=== PATIENT | female | born 1950 | race Caucasian/White ===

== ENCOUNTER 2016-11-29 01:20 | Emergency (ER) | payer MEDICARE, OTHER ==
--- NOTE | ~2016-11-29 | ER ---
PATIENT'S NAME: MEGAN MALONEY [facility] AGE: 66 Y [address] ROOM: [place] [address] LOCATION: [facility] ADMIT DATE: 11/29/2016 ER/Outpatient Report DISCHARGE DATE: FAMILY PHYSICIAN: Antonia Blanchard MD ATTENDING PHYSICIAN: Nikos Tian Admission date and time documented on the medical record. I saw the patient at 0130 hours. CHIEF COMPLAINT: Chronic pain. HISTORY OF PRESENT ILLNESS: The patient is a 66-year-old female who comes in with chronic pain problems. She has had a fractured left arm since September 03, 2016. Saw Dr. Zhang today concerning that and sounds like they are going to have to do an operative procedure on that arm in December. Presents tonight with arm pain, but just generalized pain all over which she has not been able to get a hold on. She does have a pain pump. She does take oxycodone 10 mg every 4-6 hours. No recent cough, cold, flu, fever, chills, or sweats. No recent fall or trauma. No lightheadedness, dizziness, syncope, or near syncope. No headache, eyes, ears, nose, throat pain. No shortness of breath. No nausea, vomiting, diarrhea. No urinary symptoms. No joint swelling. No skin eruptions. No history of neuro changes, psych issues, endocrine problems. HOME MEDICATIONS: See attached medication list. ALLERGIES: PENICILLIN, SULFA. SOCIAL HISTORY: Nonsmoker, nondrinker. SIGNIFICANT PAST MEDICAL HISTORY: Chronic pain syndrome, rheumatoid arthritis, fracture of left humerus, intraabdominal adhesions, COPD, hypertension, gastroesophageal reflux. OPERATIONS: Cholecystectomy. REVIEW OF SYSTEMS: All systems reviewed by me are negative with the exception of those discussed in the history of present illness. PATIENT'S NAME: MEGAN MALONEY [facility] AGE: 66 Y [address] ROOM: [place] [address] LOCATION: [facility] ADMIT DATE: 11/29/2016 ER/Outpatient Report DISCHARGE DATE: FAMILY PHYSICIAN: Antonia Blanchard MD ATTENDING PHYSICIAN: Nikos Tian PHYSICAL EXAMINATION: VITAL SIGNS: Temperature 98.1 tympanic, pulse 86, respirations 16, blood pressure 171/86, O2 saturation on room air is 91%. HEAD: Normocephalic. No abrasion, contusions, lacerations, swellings of the scalp or face. EYES: Extraocular muscles intact. PERRL. EARS: Clear TMs bilaterally. NOSE: Clear. THROAT: Clear. Mucous membranes moist. Teeth, jaw intact. NECK: No nuchal rigidity. No findings of adenopathy. No tenderness. SPINE: Negative. LUNGS: Clear. No rales, rhonchi, or wheezes. HEART: Regular. Pulses are palpable. No deformity of the anterior chest wall or ribcage. ABDOMEN: Soft, nondistended, nontender. Good bowel tones. No organomegaly or abnormal mass palpable. No CVA tenderness. PELVIS: Stable. EXTREMITIES: Moves all 4 extremities. Does have some peripheral edema in the lower extremities. No cyanosis. Neurovascularly intact. SKIN: Clear. IMPRESSION: Chronic pain syndrome out of control. PLAN: I did give the patient Demerol 100 mg plus Phenergan 50 mg IM in the emergency room. Dismissed the patient home. Observation. Activity as tolerated. Continue present home medications and care. See personal physician or pain specialist for further help. MD SOHAIL PADILLA/modl /[id number] d: 11/29/16 0356 t: 11/29/16 1813, OUTPATIENT REPORT
== END 2016-11-29 02:09 | disposition disaster alternative care site (69) ==
LOC: GMED 01:20
DX: G89.29 Other chronic pain (principal); M06.9 Rheumatoid arthritis, unspecified; I10 Essential (primary) hypertension; J44.9 Chronic obstructive pulmonary disease, unspecified; K21.9 Gastro-esophageal reflux disease without esophagitis; Z90.49 Acquired absence of other specified parts of digestive tract; Z88.0 Allergy status to penicillin; Z88.2 Allergy status to sulfonamides
CPT/HCPCS: J2175; J2550

== ENCOUNTER 2016-12-04 13:27 | Inpatient (IN) | payer MEDICARE, OTHER ==
[~2016-12-04] VITALS: Ht 154.9 cm; Wt 49.1 kg
--- NOTE | ~2016-12-04 | ECHO ---
Transthoracic Echocardiography Report (TTE) Demographics Patient Name MEGAN MALONEY Date of Study 12/05/2016 Patient Number [id number] Visit Number [id number] Date of 1950 Room Number G3213 Gender Female Number Age 66 year(s) Referring Santo Trevino MD Membership Sales Manager Real Villanueva Physician Leyla Smith MD Physician Interpreting [employer] Teacher Librarian Physician Misty TAYLOR Supervising Ordering Chetan Christensen MD/TRISTEN Physician Nurse Stress Cleaning Manager Conclusions Contractility Score Summary Normal Left Ventricular contractility was noted. Summary The estimated left ventricular ejection fraction is 55-60%. Diastolic assessment reveals Grade I diastolic dysfunction. The left atrium is mildly dilated by LA volume index measurement. Small anterior pericardial effusion. Procedure Type of Study TTE procedure:2D Echocardiogram, M-Mode, Doppler , Color Doppler. Procedure Date Date: 12/05/2016 Start: 01:46 PM Study Location: Inpatient Portable Technical Quality: Good visualization Indications:Pre surgical clearance and Dyspnea/SOB. Appropriate Use Criteria: 9 Patient Status: Routine HR: 75 bpm BP: 158/77 mmHg M-Mode/2D Measurements LV Diastolic Dimension: 3.77 cm LV Systolic Dimension: 2.84 cm LV Septum Diastolic: 0.97 cm LV PW Diastolic: 0.84 cm AO Root Dimension: 2.2 cm Cardiac Output: 4.87 l/min LA Dimension: 2.7 cm EF Estimated: 55 % LVOT: 1.9 cm LVOT VTI: 22.9 cm RV Base: 1.81 cm LV Stroke volume: 64.9 ml RV Length: 5.85 cm TAPSE: 1.91 cm TDI-S': 14.9 cm/s Doppler Measurements AV Peak Velocity: 1.5 m/s MV Peak E-Wave: 0.93 m/s AV Peak Gradient: 9 mmHg MV Peak A-Wave: 1.17 m/s AV Mean Gradient: 5 mmHg MV E/A Ratio: 0.8 LVOT Peak Velocity: 1.11 m/s MV P1/2t: 71 msec MV Deceleration Time: 229 msec TR Gradient:12.11 mmHg PV Peak Velocity: 0.93 m/s Estimated RAP:3 mmHg PV Peak Gradient: 3.46 mmHg Estimated RVSP: 15 mmHg Estimated PASP: 15.11 mmHg E' Septal Velocity: 0.05 m/s A' Septal Velocity: 0.11 m/s E' Lateral Velocity: 0.08 m/s A' Lateral Velocity: 0.12 m/s Findings Left Ventricle The left ventricle is normal in size . Diastolic assessment reveals Grade I diastolic dysfunction. Right Ventricle Normal right ventricle structure and function. Left Atrium The left atrium is mildly dilated by LA volume index measurement. Right Atrium Normal right atrial size. IVC measures 0.93 cm with inspiratory collapse. Mitral Valve Trivial mitral regurgitation by color Doppler. Mild calcification of the mitral valve. Mild mitral annular calcification. Aortic Valve The aortic valve is mildly sclerotic. Tricuspid Valve Trivial tricuspid regurgitation by color Doppler. Pulmonic Valve The pulmonic valve is not well visualized. Pericardial Effusion Small anterior pericardial effusion. Miscellaneous Visualized portions of the aortic root and ascending aorta appear normal in size. Pleural Effusion No evidence of pleural effusion. Contractility Score LV regional wall motion:(0-Non visualized 1-Normal 2-Hypokinesis 3-Akinesis 4-Dyskinesis 5-Aneurysm) Signature dtt: Moraima Altman dtd: 12/05/16 [id number] Physician Self Edit
--- NOTE | ~2016-12-04 | CON ---
PATIENT'S NAME: MEGAN MALONEY [facility] AGE: 66 Y [address] ROOM: [address] [place], [place] [address] LOCATION: [facility] ADMIT DATE: 12/04/2016 Consultation DISCHARGE DATE: FAMILY PHYSICIAN: Antonia Blanchard MD ATTENDING PHYSICIAN: LOLA FORD V DATE OF CONSULTATION: 12/05/2016 IDENTIFYING INFORMATION/REASON FOR CONSULTATION: Jessica is a 66-year-old, , white female, admitted to [facility] on 12/04/2016 as a direct admit from [facility]. Has a longstanding history of chronic pain and opioid dependency. Psychiatric consult was obtained for assistance with the medication regimen. Also matured, she has been quite anxious and disruptive. CHIEF COMPLAINT: "I am feeling okay now." HISTORY OF PRESENT ILLNESS: Megan was doing fairly well, when she was evaluated has been getting the methadone along with the pain pump that she is on. Also on the Ativan at this time along with the clonidine, seem to be in a good spirit and a fairly good historian, and quite forthcoming about her mcbride with medication addiction. States that it all started about a year ago and underwent a few surgeries and got prescribed opioid medications and soon became addicted. She has been seeing Dr. Shelton Alan from office in which she sees Dr. Hunter, and has been placed with Dilaudid intrathecal pain pump, on top of it has been getting oxycodone and hydrocodone prescribed to her through Dr. Antonia Blanchard. It is quite open that she will take "as many as I can get." States that there would be days when she will get 6 to 8 of them. Many times she says she got prescribed of a 90-day supply and during those days, she will take a significant amount and then ran out of them going into withdrawal and anxiety. States that now it is to a point where she herself is ready to get treatment, but does not know how to do it. States that she gets very anxious which is a very common trigger, and also not able to sleep at nighttime is another big trigger for her where she seeks and goes after the pain medications to seek tiredness and sedation. No prior psychiatric history that she shared. As her was there as well corroborated, overall calm, cooperative, and wants help. PSYCHIATRIC HISTORY: None. MEDICAL HISTORY: PATIENT'S NAME: MEGAN MALONEY [facility] AGE: 66 Y [address] ROOM: [address] [place], [place] [address] LOCATION: [facility] ADMIT DATE: 12/04/2016 Consultation DISCHARGE DATE: FAMILY PHYSICIAN: Antonia Blanchard MD ATTENDING PHYSICIAN: LOLA FORD V 1. Fractured her humerus in August. 2. Also hypertension. 3. Osteoarthritis. 4. Rheumatoid arthritis. 5. Fibromyalgia. CURRENT MEDICATIONS: She is taking BuSpar, has been started on methadone gradual taper. Also an order in for extra oxycodone and also on p.r.n. Ativan. PERSONAL AND SOCIAL HISTORY: , lives in [place]. Denies any other illegal substances or alcohol dependence. MENTAL STATUS EXAMINATION: Appeared the stated age, calm, cooperative, getting echo, and calm and relaxed and a good historian, and quite forthcoming about her pain medication use and herself wants some help in that area. "I am sick of it." Calm, cooperative. No elements of any psychosis. No manic symptomatology. Just talked about her triggers and always feeling anxious and nervous. Otherwise, alert and oriented. General fund of knowledge is good. Judgment and insight are fair. DIAGNOSES: 1. Anxiety disorder, other specified. 2. Opioid dependence. 3. Fracture of humerus. ASSESSMENT AND PLAN: A long history of significant opioid abuse. It will be difficult to manage it unidimensionally. At this time has been initiated on a long-term opioid and is on a methadone taper which is very appropriate, to complicate things likely to have a surgical manipulation to adjust the humerus so there would be a real focus for pain and might need stronger medications over the next several days. The overall treatment should be involving the outpatient providers and keeping them informed that she is on a pain pump and so she can limit what she can access in terms of her prescriptions. Would definitely let Dr. Antonia Blanchard upon discharge know along with the pain specialist about the concerns that the patient has shared with us. For now, we will add Seroquel 50 mg at bedtime and another 12.5 mg b.i.d. to alleviate the anxiety and to help rather insomnia which per her is a big trigger for taking more pain medications. No behavior problems. No acute safety concerns. Please call with any specific concerns. Discussed with the patient about different strategies in the presence of the including dispensing the medication in small installments, using weekly medication totes so she does not at one time have access to a large amount of pills, if they end up of being used in the short PATIENT'S NAME: MEGAN MALONEY [facility] AGE: 66 Y [address] ROOM: [place] [address] LOCATION: [facility] ADMIT DATE: 12/04/2016 Consultation DISCHARGE DATE: FAMILY PHYSICIAN: Antonia Blanchard MD ATTENDING PHYSICIAN: LOLA FORD V term. YAKOVVIR MD ALBERT EGAN/modl /[id number] d: 12/05/162037 t: 12/09/161831, CONSULTATION REPORT
--- NOTE | ~2016-12-04 | HP ---
PATIENT'S NAME: MEGAN MALONEY [facility] AGE: 66 Y [address] ROOM: [place] [address] [place] [facility] [place] DATE: 12/04/2016 History & Physical DISCHARGE DATE: FAMILY PHYSICIAN: Antonia Blanchard MD ATTENDING PHYSICIAN: LOLA FORD V DATE OF SERVICE: ORTHOPEDIC CONSULTATION CHIEF COMPLAINT/REASON FOR CONSULTATION: Nonunion left humerus fracture. HISTORY OF PRESENT ILLNESS: This 66-year-old female fell and fractured her left humerus, mid shaft fracture in mid August 2016. She was treated with a coaptation splint and sling. She is still complaining of pain at the left humerus. She denies numbness or tingling in the hand. She has been on narcotics for the pain and has been prescribed Dilaudid for 5 or 6 years for other problems by her family physician. She felt that she was addicted to drugs and checked in to [facility] for treatment. She still has pain in her left humerus and she can feel with moving. PAST MEDICAL HISTORY: 1. Hypertension. 2. Chronic diarrhea. 3. Osteoarthritis. 4. GERD. 5. COPD. 6. Rheumatoid arthritis. 7. Fibromyalgia. 8. Carotid artery stenosis. 9. History of anxiety. PAST SURGICAL HISTORY: 1. Cholecystectomy. 2. Adhesions. SOCIAL HISTORY: Distant smoker. No active alcohol or smoking. FAMILY HISTORY: Hypertension. CURRENT MEDICATIONS: PATIENT'S NAME: MEGAN MALONEY [facility] AGE: 66 Y [address] ROOM: [place] [address] [place] [facility] [place] DATE: 12/04/2016 History & Physical DISCHARGE DATE: FAMILY PHYSICIAN: Antonia Blanchard MD ATTENDING PHYSICIAN: LOLA FORD V 1. Clonidine. 2. Lorazepam. 3. Metoprolol. 4. Mirtazapine. 5. Zanaflex. 6. Acetaminophen. 7. Imodium. 8. Losartan. 9. Pantoprazole. 10. Magnesium. 11. Plaquenil. 12. Potassium. 13. Prednisone. 14. Omnicef. 15. BuSpar. 16. Oxycodone. REVIEW OF SYSTEMS: No coughs, colds, fevers, chills, or sore throats. No chest pain or shortness of breath. No dysuria or hematuria. She does have some diarrhea. No blackout spells, dizziness, no malaise or weight change. No auditory or visual hallucinations. PHYSICAL EXAMINATION: GENERAL: She is awake, alert, and oriented x3. Mood and affect appropriate. VITAL SIGNS: Temperature is 98.0, pulse is 74 and regular, respirations 16, and blood pressure 132/84. HEENT: Atraumatic and normocephalic. PERRL. EOMI. TMs clear. Throat clear. NECK: Supple. CHEST: Clear to auscultation. HEART: Regular rhythm. ABDOMEN: Soft, nontender. Normoactive bowel sounds. EXTREMITIES: She has good pulses bilaterally. NEUROLOGIC: Sensation and motor function are intact in the upper and lower extremities. Pulses good. Reflexes equal. Left arm, she has tenderness but no swelling at the humerus. There is palpable movement at the fracture site with pain. DIAGNOSTIC DATA: X-rays of her left humerus, AP and lateral demonstrate a long oblique mid shaft fracture with angulation and no healing. IMPRESSION: 1. Nonunion left femur. PATIENT'S NAME: MEGAN MALONEY [facility] AGE: 66 Y [address] ROOM: [place] [address] [place] [facility] DATE: 12/04/2016 History & Physical DISCHARGE DATE: FAMILY PHYSICIAN: Antonia Blanchard MD ATTENDING PHYSICIAN: LOLA FORD V 2. Opioid dependency. 3. Hypertension. 4. Anxiety. 5. Rheumatoid arthritis, on Plaquenil and prednisone. 6. Depression, on BuSpar. PLAN: For now, conservative treatment. She is scheduled for ORIF and bone grafting of the left humerus in a couple weeks. We might be able to do that sooner if her medical condition permits. We will discuss it with Internal Medicine. MD TARIQ CALHOUN/elke /[id number] D: 543 T: 114 HISTORY & PHYSICAL
--- NOTE | ~2016-12-04 | DS ---
PATIENT'S NAME: MEGAN MALONEY [facility] AGE: 66 Y [address] ROOM: [address] [place], [place] [address] LOCATION: [facility] ADMIT DATE: 12/06/2016 Discharge Summary DISCHARGE DATE: 12/06/2016 FAMILY PHYSICIAN: Antonia Blanchard MD ATTENDING PHYSICIAN: Ugo Mayer V PRIMARY DIAGNOSES: 1. Opiate dependence. 2. Anxiety. 3. Chronic condition includes chronic diarrhea, left humeral fracture, chronic pain, and also rheumatoid arthritis. PRINCIPAL PROCEDURES DONE: None was indicated in the patient. LABORATORY DATA: No new labs were done during the hospital stay. HOSPITAL COURSE: Please check the H and P, which was done by Dr. Mayer for details. The patient was admitted to Med Surgical Unit and she was chemically weaned off her opiate dependence with methadone combined with oxycodone Immediate Release and she did also have severe anxiety problem for which Psychiatry was called and Psychiatry started the patient on Seroquel. On the day of discharge, which is the next day of the hospital stay, the patient did remark that the Seroquel did help with her anxiety. On the first day of the hospital stay, she was also followed up by the Orthopedic Team as they were seeing the patient on the outside for her humeral fracture, left, and they had initially set the patient up for plate placement for the fracture on December 25; however, since she was on admission, they thought of possibly trying to get it done; however, this was later canceled and went back to the old plan of getting it done on December 25. On the day of discharge, the patient did not feel happy to the fact that her surgery for the left humeral fracture had to be canceled and referred back to the initial plan and she got a little bit agitated for this. However, medically, she was stable, vital signs were stable, and she was discharged home. MEDICATIONS ON DISCHARGE: Includes: 1. BuSpar 10 mg p.o. 3 times daily. 2. Cholestyramine 4 g p.o. daily new medication. 3. Clonidine 0.1 mg transdermal every 7 days. 4. Plaquenil 200 mg p.o. daily. 5. Cozaar 100 mg p.o. daily. 6. Magnesium oxide 400 mg p.o. twice daily. 7. Methadone 10 mg p.o. twice daily to stop on December 06, 2016. The patient needs just one more tablet. 8. Metoprolol 100 mg p.o. daily. 9. Remeron 30 mg p.o. daily. PATIENT'S NAME: MEGAN MALONEY [facility] AGE: 66 Y [address] ROOM: [place] [address] LOCATION: [facility] [place] ADMIT DATE: 12/06/2016 Discharge Summary DISCHARGE DATE: 12/06/2016 FAMILY PHYSICIAN: Antonia Blanchard MD ATTENDING PHYSICIAN: Ugo Mayer V 10. Oxycodone 10 mg p.o. q.6 h. for 2 days then oxycodone 10 mg p.o. q.8 h. for one day then stop. 11. Protonix 40 mg p.o. daily. 12. Potassium chloride 20 mg p.o. twice daily. 13. Prednisone 10 mg p.o. daily. 14. Vitamin D synthetic 50,000 units every 7 days. 15. Seroquel 50 mg p.o. q.h.s. 16. Seroquel 12.5 mg p.o. twice daily. DARLENE LOPEZ MD ODO/modl /[id number] d: 12/06/16 235 t: 12/18/16 1724, DISCHARGE SUMMARY
--- NOTE | ~2016-12-04 | HP ---
PATIENT'S NAME: MEGAN MALONEY [facility] AGE: 66 Y [address] ROOM: [id number] [place], [place] [address] LOCATION: [facility] ADMIT DATE: 12/04/2016 History & Physical DISCHARGE DATE: FAMILY PHYSICIAN: Antonia Blanchard MD ATTENDING PHYSICIAN: LOLA FORD V DATE OF SERVICE: CHIEF COMPLAINT: Pain. HISTORY OF PRESENT ILLNESS: This is a 66-year-old female who is being sent direct admit from clinic in [place]. She has a past medical history most significant for long-standing chronic pain with opioid dependency. She comes in with a packet of approximately 60 pages long characterizing her recent course. The patient has been on Dilaudid, perhaps for 5-6 years. It is reported that her pain is related to history of cholecystectomy and subsequent adhesions. Of note, the patient did have a recent left humerus fracture and was diagnosed with rheumatoid arthritis, although I doubt rheumatoid arthritis plays into her current medical condition. Essentially, she has had increasing requirements of opioids in the last 6 weeks. In fact, she was taking so much Percocet that she had an LFT elevation several weeks ago and was changed to just oxycodone and hydrocodone. She has been coming into the ER 2-3 times a week, sometimes even twice a day receiving shots of Demerol as well as Toradol. Of note, the patient was admitted to [facility] for 5 days, last discharge yesterday. There, she has undergone a lidocaine drip as well as what sounds like a celiac plexus block as well as an endoscopy which was unremarkable. All of these interventions did not control her need for additional opioid and she came to see her PMD in [place] today. It was discussed with her that the patient probably has significant opioid dependency and would require inpatient rehab but at this point, will have to be detoxified from the opioids. She was sent to [facility] as a direct admission. I am seeing the patient in the room here and she complains of mild anxiety as well as generalized pain throughout her whole body. It does localize somewhat to her left humerus where she had the fracture, but overall it is fairly uniform throughout her body. She denies any cardiac chest pain, dizziness, or syncope. She does endorse diarrhea which has been a chronic problem for her for many years. PATIENT'S NAME: MEGAN MALONEY [facility] AGE: 66 Y [address] ROOM: [place] [address] LOCATION: [facility] ADMIT DATE: 12/04/2016 History & Physical DISCHARGE DATE: FAMILY PHYSICIAN: Antonia Blanchard MD ATTENDING PHYSICIAN: LOLA FORD V REVIEW OF SYSTEMS: All systems have been reviewed and are negative aside from pertinent positives mentioned above. PAST MEDICAL HISTORY: In addition to chronic pain is significant for hypertension, history of adhesions, chronic diarrhea, chronic osteoarthritis, GERD, documented COPD, rheumatoid arthritis, fibromyalgia, and carotid artery stenosis. SURGICAL HISTORY: Significant for a history of cholecystectomy. SOCIAL HISTORY: The patient was a distant smoker, but has no active toxic habits. FAMILY HISTORY: Reviewed and is noncontributory. CURRENT MEDICATIONS: 1. Clonidine transdermal patch. 2. Lorazepam 0.5. 3. Metoprolol ER 100. 4. Mirtazapine 30 mg. 5. Zanaflex 4. 6. Acetaminophen as needed. 7. Vitamin D2. 8. Imodium 2 mg. 9. Losartan 50. 10. Pantoprazole 40. 11. Magnesium oxide 400. 12. Plaquenil 200. 13. Potassium chloride. 14. Prednisone 5. 15. Omnicef 300. 16. BuSpar 10. 17. Oxycodone/APAP 10/325 one tablet every 4 hours, not to exceed 6 tablets a day. PHYSICAL EXAMINATION: VITAL SIGNS: Temperature is 98.2, pulse is 100, respirations 18, blood pressure 123/62, and saturating 95% on room air. GENERAL: Appears as a chronically ill, elderly female, in mild distress, but nontoxic. NEUROLOGICAL: Exam is nonfocal. EYES: Exam shows pupils are equal and reactive to light. PATIENT'S NAME: MEGAN MALONEY [facility] AGE: 66 Y [address] ROOM: [place] [address] LOCATION: [facility] ADMIT DATE: 12/04/2016 History & Physical DISCHARGE DATE: FAMILY PHYSICIAN: Antonia Blanchard MD ATTENDING PHYSICIAN: LOLA FORD V LYMPHATIC: Exam shows no cervical lymphadenopathy. ENDOCRINE: Exam shows no thyromegaly. LUNGS: Clear to auscultation. HEART: Rate is regular with no appreciable murmurs, gallops, or rubs. GI: Abdomen is soft, nontender, and nondistended. : Exam reveals no costovertebral angle tenderness. VASCULAR: 2+ pedal pulses. MUSCULOSKELETAL: Exam is deferred. PSYCHIATRIC: Exam reveals appropriate mood, cognition, and affect with considerable anxiety. SKIN: Warm and dry. DIAGNOSTIC DATA: No studies are available at this point. ASSESSMENT AND PLAN: This is a 66-year-old female who was admitted with, 1. Opioid dependence. I had a very horace discussion with the patient and her explaining to her that her "pain" is a manifestation of her chemical dependency to opioids. I explained to her that the reason that she is here is so that we can detoxify her to the best of our ability, which I expect will be limited, as she is on a Dilaudid intrathecal pump. Nevertheless, I told her that at this point, we will not be providing her with any more IV medicines including Demerol. I told her that given her declining recent course, it is worthwhile to attempt a brief course of methadone with a concurrent tapering of her oral opioid regimen. I explained to her that this will not be a pleasant process and her cooperation and acceptance of some discomfort is essential to succeeding. The patient and her endorsed understanding. We will also consider a Pain Management consult if we are not successful with the above plan. 2. Given her recent diagnosis of rheumatoid arthritis and other medical problems, we will check her labs as well as ESR to make sure that this is not a possibly polymyalgia rheumatica or other exacerbating condition. 3. Hypertension. Her blood pressure is well controlled. 4. Chronic diarrhea. I was informed that cholestyramine is an agent that works well for her, and we will put her on that p.r.n. Additional management will depend on clinical course. Time dedicated to the patient's encounter is 35 minutes. LOLA FORD MD PATIENT'S NAME: MEGAN MALONEY [facility] AGE: 66 Y [address] ROOM: [place] [address] LOCATION: [facility] ADMIT DATE: 12/04/2016 History & Physical DISCHARGE DATE: FAMILY PHYSICIAN: Antonia Blanchard MD ATTENDING PHYSICIAN: LOLA FORD/veronical /[id number] D: [id number] T: [id number] HISTORY & PHYSICAL
[2016-12-04] MEDS ORDERED: PLAQUENIL200 MG PO (15:01)
[2016-12-04] MEDS ORDERED: OMNICEF 300MG300 MG PO (15:02)
[2016-12-04] MEDS ORDERED: PROTONIX40 MG PO (15:03)
[2016-12-04] MEDS ORDERED: K-TAB ER20 MEQ PO (15:03)
[2016-12-04] MEDS ORDERED: COZAAR100 MG PO (15:03)
[2016-12-04] MEDS ORDERED: ZANAFLEX4 MG PO (15:04)
[2016-12-04] MEDS ORDERED: DELTASONE10 MG PO (15:04)
[2016-12-04] MEDS ORDERED: MAG-OX-400(241400 MG PO (15:05)
[2016-12-04] MEDS ORDERED: IMODIUM2 MG PO (15:06)
[2016-12-04] MEDS ORDERED: TYLENOL325 MG PO (15:06)
[2016-12-04] MEDS ORDERED: REMERON 30 MG30 MG PO (15:06)
[2016-12-04] MEDS ORDERED: OXYCODONE HCL10 MG PO (15:08)
[2016-12-04] MEDS ORDERED: ATIVAN 0.5MG0.5 MG PO (15:08)
[2016-12-04] MEDS ORDERED: DRISDOL 5050000 UNIT PO (15:08)
[2016-12-04] MEDS ORDERED: PERCOCET 10-321 EACH PO (15:10)
[2016-12-04] MEDS ORDERED: NORCO 5-325 TA1 EACH PO (15:10)
[2016-12-04] MEDS ORDERED: BUSPAR10 MG PO (15:11)
[2016-12-04] MEDS ORDERED: CATAPRES-TTS0.1 MG TRANS (15:12)
[2016-12-04] MEDS ORDERED: TOPROL XL 5050 MG PO (15:13)
--- NOTE | 2016-12-04 15:54 | NUR ---
Patient is 66 yo femaled admitted via private vehicle from [facility]. Patient lives w/ in [place]. She apparently fell in Aug 2016 and fractured her left humerus. she has been being treated by Dr. Ramesh, she is scheduled to have her left humerus stabilized by ORIF 12/25/16. She states she probably won't be able to have the surgery. She apparently has become dependent upon the opiods and is having difficulty. She states she can be "very difficult" sometimes. Patient was at [facility] for 5 days, went home yesterday. She states they didn't do anything to help her dependence. When she got home, she was very anxious and unable to function. went to [facility] to see her provider, and she is transferred here. she has a saline lock noted in right inner wrist without erythema or edema noted at site. patient appears to be very anxious, but is able to calm herself down at times as well. Education is given as documented. patient denies questions. foot pumps are on bilat. fall and allergy bracelets on. call light is within reach. patient denies other needs at this time. menu and how to order meals is reviewed w/patient also. Report is given to SHIVANI Alba.
--- NOTE | 2016-12-04 19:30 | NUR ---
Significant Event: Patient is alert and oriented x3. VSS and on RA. Methadone and oxycodone started, patient states she does not have relief at this time. Pain is in the right upper quadrant. Up with 1PA and jarod-walker. Alarms on. Pressure ulcer on buttocks- wound nurse notified and she evaluated. Cooperative with cares.
[2016-12-04 21:15] LABS: BASOPHIL % 0.4 %; EOSINOPHIL # 0.1 K/uL (0.0-0.5); EOSINOPHIL % 1.1 %; HEMATOCRIT 37.9 % (33.0-46.0); HEMOGLOBIN 11.6 g/dL (10.0-15.0); IMMATURE GRANULOCYTE % 0.4 %; LYMPHOCYTE # 1.8 K/uL (0.8-4.0); LYMPHOCYTE % 16.5 %; MCH 30.3 pg (27.0-34.0); MCHC 30.6 gm/dL (32.0-36.5); MONOCYTE # 0.6 K/uL (0.0-1.0); MONOCYTE % 5.6 %; MPV 10.8 fl (9.4-12.4); NEUTROPHIL # (ANC) 8.2 K/uL (1.8-7.8); NRBC % 0 /100WBC (0-0.00); PLATELET COUNT 309 K/uL (150-450); RBC 3.83 M/uL (3.50-5.50); RDW-CV 16.6 % (11.9-14.6); WBC 10.8 K/uL (4.0-11.0)
[2016-12-04 21:39] LABS: ALK PHOS 78 IU/L (33-138); ALT 21 IU/L (12-78); ANION GAP 10.7 (10.0-19.0); AST 41 IU/L (10-40); BLOOD UREA NITROGEN 5 mg/dL (6-24); CALCIUM 8.7 mg/dL (8.5-10.5); CHLORIDE 107 mMol/L (96-110); CO2 30 mMol/L (22-32); CREATININE 0.8 mg/dL (0.5-1.1); ESTIMATED GFR (MDRD EQUATION) > 60; MAGNESIUM 1.8 mg/dL (1.3-2.6); PHOSPHORUS 3.6 mg/dL (2.5-4.9); POTASSIUM 3.7 mMol/L (3.7-5.1); SODIUM 144 mMol/L (135-145); TOTAL BILIRUBIN 0.3 mg/dL (0.0-1.5); TOTAL PROTEIN 6.5 g/dL (6.0-8.4)
--- NOTE | 2016-12-05 03:41 | NUR ---
Significant Event: Pt is alert and oriented. VSS on RA. IV to the R)wrist. L)arm in sling due to recent fracture. Pt was very anxious during shift, PRN ativan ordered. Bed alarm on at all times. Ambulates 1 assist/jarod walker. Tolerating regular diet. No complaints of nausea. Follow Up: Continue to monitor.
--- NOTE | 2016-12-05 14:16 | NUR ---
Met with patient, , sister, and son at bedside today. Introduced myself and explained the role of the CM department. Patient was in the state of extreme anxiety. She was really struggling with managing her emotions. I asked the family to leave so I had some time to talk to patient alone. She states she has suffered anxiety for over a year now and has hid it from her son and sister, but her has known about it. We also discussed her dependency on the opiod pain relievers. Patient admits that she has over used these for a number of years and part of that is because they also helped control her anxiety. Patient was very tearful while we talked. She states she just wants to be able to have a normal life being a , mother, grandma, and sister. She is very afraid that her son will not let his daughter, Rain see her knowing how bad her anxiety is. She is very worried about her as he has been trying to help her on his own the past year and he is getting worn out and he no longer knows what to do for her. I talked to her about treatment options for the addiction and for her anxiety. She states that she is willing to consider either inpatient or intensive out patient treatment. I also shared with her that some of the symptoms she is having could be due to withdrawal from not having the pain medications. I am not certain she completely understands this. She states that she and her are considering moving to [place]. Charge Nurse Sherly state they have questions on some assisted living facilities. I will meet with them again today or tomorrow.
--- NOTE | 2016-12-05 15:12 | NUR ---
Significant Event: Pt c/o intermittent left arm pain, controlled with routine oxcodone, continues on methadone and has a pain pump in place. Anxious at times, Ativan PO given at 1230. Psychiatric consult, chest xray, Echo, Dr. Ramesh consult, xray ap/latereral left arm, OT/PT consult. Possible surgery in near future. Left arm in sling, good csm. Does have a sore on coccyx. Need UA. Follow up:
[2016-12-05 21:49] LABS: BILIRUBIN URINE NEGATIVE (NEGATIVE); BLOOD URINE NEGATIVE /UL (NEGATIVE); COLOR URINE YELLOW (YELLOW); GLUCOSE URINE NEGATIVE (NEGATIVE); KETONE URINE NEGATIVE (NEGATIVE); LEUKOCYTES URINE 25 /UL (NEGATIVE); NITRITE URINE NEGATIVE (NEGATIVE); PROTEIN URINE NEGATIVE (NEGATIVE); SPEC GRAVITY URINE 1.015 (1.003-1.035); TURBIDITY URINE CLEAR (CLEAR); UROBILINOGEN URINE NORMAL (NORMAL)
[2016-12-05 22:11] LABS: BACTERIA URINE RARE (NEGATIVE); EPITHELIAL URINE 0-2 #/HPF (NEGATIVE); MUCUS URINE 4+ (NEGATIVE)
[2016-12-05 22:12] LABS: HYALINE CAST URINE 0-2 #/LPF (NEGATIVE); WBC CLUMPS URINE RARE (NEGATIVE)
--- NOTE | 2016-12-06 03:52 | NUR ---
Significant Event: Pt is alert and oriented. VSS on RA. Pt is a lot more calm and has not seemed anxious this shift. Been Sleeping most of shift. Ambulates 1 assist/gaitbelt/jarod walker. No complaints of nausea or pain. Follow Up: Continue to monitor. Surgery in future.
--- NOTE | 2016-12-06 12:17 | NUR ---
Met with patient and today. Patient is reporting feeling very anxious again today. She does state that she felt better yesterday afternoon. She is not sure if they are going to plan to do surgery on her arm while she is here in the hospital or not. Will talk with SANTOS Calvillo following patient and let her know the patient has a lot of anxiety today. Per Allison, patient should be able to discharge to home with out patient therapy for her addiction and anxiety. Will follow patient and offer supports as needed.
--- NOTE | 2016-12-06 16:01 | NUR ---
Significant Event: Pt states pain tolerable with routine pain medications. Up with standby assist. Occasional anxiety, Ativan given at 1130. Pt to dc to home. Pt/ have a lot of anxiety about discharging. Care management talked with them and if they chose assisted living or senior living placement it would be out of pocket costs and she does not qualify for need of placement. Gave Seroquel at 1400 per MD order. Care management did discuss options of outpatient addiction facilities and gave them information on one in [place] if they choose so in the future. Possible dc later today. Sling to left arm, good CSM to arm. Follow up:
[2016-12-06] MEDS ORDERED: PREVALITE PACKET4 GM PO (16:53)
[2016-12-06] MEDS ORDERED: DOLOPHINE10 MG PO (16:57)
[2016-12-06] MEDS ORDERED: SEROQUEL50 MG PO (17:11)
[2016-12-06] MEDS ORDERED: SEROQUEL100 MG PO (17:12)
--- NOTE | 2016-12-06 17:40 | NUR ---
D:Orders received for patient to be dismissed. I:Dismissal instructions were prepared and reviewed with the patient and her spouse by the virtual nurse using the computer technology. The following information was reviewed: diet and activity recommendations for home, plans for methadone x 1 more dose tonight and to continue oxycodone taper, home medications/new prescription medications, and plans for follow up appointment with Dr. Blanchard on Friday in [place]. Corry teaching given to patient and reviewed on the following topics: Preventing DVT's, Prevalite, Methadone and Seroquel. The patient was instructed to keep with her plan for surgery with Dr. Ramesh as previously scheduled on 12/25/16. R:The patient and her spouse verbalized understanding of above teaching and denied further questions at this point in time. Patient's spouse states he is planning on admitting pt to the [facility] so he can have the nurses monitor her. He said he has it all arranged and they are waiting for her as we speak. Primary nurse was notified of this statement by her pt's and she said the charge nurse and hospitalist are aware of this. P:The patient's primary nurse, Margarita RODARTE, was notified of that the dismissal paperwork had been completed. She was going to take the paperwork in for the patient to sign and have. The patient will be dismissed this evening. Herman PARRISH
--- NOTE | 2016-12-06 19:01 | NUR ---
Pt dc'd to home at 1745. Pt belongings sent with them. Discharged with .
== END 2016-12-06 18:00 | disposition disaster alternative care site (69) | DRG 897 ==
LOC: GMSU 13:27
PROVIDERS: Hospitalist; ADMIT Internal Medicine
PROC: HZ96ZZZ Pharmacotherapy for Substance Abuse Treatment, Clonidine (ICD-10-PCS; principal; 2016-12-06)
PROC: HZ91ZZZ Pharmacotherapy for Substance Abuse Treatment, Methadone Maintenance (ICD-10-PCS; principal; 2016-12-06)
DX: F11.288 Opioid dependence with other opioid-induced disorder (principal); S42.332A Displaced oblique fracture of shaft of humerus, left arm, initial encounter for closed fracture; J44.9 Chronic obstructive pulmonary disease, unspecified; I10 Essential (primary) hypertension; M06.9 Rheumatoid arthritis, unspecified; F32.9 Major depressive disorder, single episode, unspecified; M79.7 Fibromyalgia; K52.9 Noninfective gastroenteritis and colitis, unspecified; M19.90 Unspecified osteoarthritis, unspecified site; G89.29 Other chronic pain; T40.2X5A Adverse effect of other opioids, initial encounter; W19.XXXA Unspecified fall, initial encounter; Z71.51 Drug abuse counseling and surveillance of drug abuser; Z98.890 Other specified postprocedural states; Z90.49 Acquired absence of other specified parts of digestive tract; Z87.891 Personal history of nicotine dependence
CPT/HCPCS: G0378; G0379; J7512

== ENCOUNTER 2016-12-20 14:00 | Inpatient (IN) | payer MEDICARE, OTHER ==
[~2016-12-20] VITALS: Ht 154.9 cm; Wt 50.6 kg
--- NOTE | ~2016-12-20 | OR ---
PATIENT'S NAME: MEGAN MALONEY [facility] AGE: 66 Y [address] ROOM: [address] [address] LOCATION: [facility] ADMIT DATE: 12/25/2016 OR/Procedure Report DISCHARGE DATE: FAMILY PHYSICIAN: Antonia Blanchard MD ATTENDING PHYSICIAN: Petey Zhang SURGEON: Petey Zhang MD SMOKE TESTER: SANTOS Saravia DATE OF PROCEDURE: 12/25/2016 PREOPERATIVE DIAGNOSIS: Delayed union, left humeral shaft fracture. POSTOPERATIVE DIAGNOSIS: Delayed union, left humeral shaft fracture. OPERATION PERFORMED: Open reduction and internal fixation with bone graft from the left iliac crest. ANESTHESIA: General, ET tube. INDICATIONS: This is a 66-year-old female with a left humerus fracture after a ground-level fall about 4 months ago. She has been treated nonoperatively, but her fracture shows no evidence of healing and has been quite painful for her. She does have a problem with opioid dependence and anxiety. She also has rheumatoid arthritis and chronic pain diagnosis. DESCRIPTION OF PROCEDURE: The patient was brought to the operating room, and when a satisfactory general anesthesia had been established, her left upper extremity and shoulder were prepped and draped in an aseptic manner. Her left iliac crest was also prepped and draped in an aseptic manner. A long anterolateral incision was made over the left arm and carried down through the subcutaneous fat. The biceps muscle was identified, and it was retracted. The brachialis muscle was divided to get down to the bone after the radial nerve had been visualized and exposed. The incision was extended proximally, and the proximal fragment found and exposed, having to take some of the deltoid off the humerus. An attempt was made to use an osteotome and flake bone off with soft tissue attached. There was a pseudoarthrosis at the delayed union. Once the two ends had been exposed, intramedullary canals opened, and the bones cleaned off, they were reduced and held with 2 Allen clamps. The long oblique fracture was able to be fixed with three 3.5 lag screws. This provided fairly decent fixation. A 7-hole 4.5 LC-DC plate was then contoured to fit the humerus. It was then placed, and locking screws placed proximally and distally. An incision was then made over the iliac crest anteriorly and carried down through the subcutaneous fat. Bone graft was obtained from the inner table, harvesting bone strips of cortical cancellous bone and also cancellous bone. This was taken to the fracture and carefully laid along the fracture and as far around all sides of the bone as PATIENT'S NAME: MEGAN MALONEY [facility] AGE: 66 Y [address] ROOM: [place] [address] LOCATION: [facility] ADMIT DATE: 12/25/2016 OR/Procedure Report DISCHARGE DATE: FAMILY PHYSICIAN: Antonia Blanchard MD ATTENDING PHYSICIAN: Petey Zhang could be gotten. The deltoid was then closed over the bone graft with interrupted 0 Vicryl. The brachialis was also closed over the bone graft with interrupted 0 Vicryl. The pelvis incision was closed by SANTOS Simmons, with interrupted 0 Vicryl for the deep fascia, running 2-0 Vicryl for the subcutaneous fat, and skin edgar for the skin. On the humerus, the subcutaneous fat was closed with a running 2-0 Vicryl, and the skin was closed by SANTOS Simmons, with skin edgar. The position of the implants and fracture fragments was checked with the C-arm and accepted. The patient was awakened and sent to the recovery area, having tolerated the procedure well. MD YUMIKO HORTON/veronical /[id number] d: 12/25/161926 t: 01/02/171917, OPERATIVE SUMMARY
--- NOTE | ~2016-12-20 | DS ---
PATIENT'S NAME: MEGAN MALONEY [facility] AGE: 66 Y [address] ROOM: [place] [address] LOCATION: [facility] ADMIT DATE: 12/25/2016 Discharge Summary DISCHARGE DATE: 12/28/2016 FAMILY PHYSICIAN: Antonia Blanchard MD ATTENDING PHYSICIAN: Petey Zhang ADMITTING DIAGNOSIS: Delayed union, right humerus. PROCEDURE: ORIF right humerus with plating and bone graft. HOSPITAL COURSE: The patient was admitted with delayed union of the right humerus. She was taken to the operating room and the aforementioned procedure was performed. Bone graft was harvested from the iliac crest on the same side. Postop day 1, alert, awake, continues to complain of significant pain, ORE PUNCHER intact to the left hand, hemoglobin was 7.4. Postop day 2, hemoglobin was 5.0. Iron studies were drawn. She was typed and crossed and transfused for 1 unit of packed red blood cells for hemoglobin of 7.2. Iron sulfate was ordered. DISCHARGE INSTRUCTIONS: Follow up with myself in 6 to 12 days and follow up Dr. Zhang in 3 weeks. Continue prehospitalization medication regimen with the inclusion of Dilaudid 2 mg, #60, 1-2 p.o. q.4 h. p.r.n. pain, refills 0. Additional prescriptions were written for vitamin D 50,000 units p.o. weekly on Friday, buspirone 10 mg p.o. t.i.d., dispensed 30, hydroxychloroquine 20 mg 1 p.o. daily, dispensed 30, tizanidine 4 mg 1 p.o. q.8, dispense 20, and she was dismissed to the [facility] Bed and will follow up Pain Management with Christ. She was made weightbearing as tolerated, OT/PT as needed, and oxygen as needed to keep sats above 90. SANTOS COHEN FOR MD VANESA HORTON/elke /[id number] d: 01/02/176 t: 01/08/17 1033, DISCHARGE SUMMARY
[~2016-12-20 14:00] MED LIST: ATIVAN 0.5MG0.5 MG PO; BUSPAR10 MG PO; CATAPRES-TTS0.1 MG TRANS; COZAAR100 MG PO; DELTASONE10 MG PO; DOLOPHINE10 MG PO; DRISDOL 5050000 UNIT PO; IMODIUM2 MG PO; K-TAB ER20 MEQ PO; MAG-OX-400(241400 MG PO; NORCO 5-325 TA1 EACH PO; OMNICEF 300MG300 MG PO; OXYCODONE HCL10 MG PO; PERCOCET 10-321 EACH PO; PLAQUENIL200 MG PO; PREVALITE PACKET4 GM PO; PROTONIX40 MG PO; REMERON 30 MG30 MG PO; SEROQUEL100 MG PO; SEROQUEL50 MG PO; TOPROL XL 5050 MG PO; TYLENOL325 MG PO; ZANAFLEX4 MG PO
[2016-12-20] MEDS ORDERED: ASPIRIN EC81 MG PO (15:04)
[2016-12-20] MEDS ORDERED: CALMOSEPTINE OI71 GM TOP (15:06)
[2016-12-20] MEDS ORDERED: PHENERGAN25 M1 PO (15:09)
[2016-12-20] MEDS ORDERED: REMERON 30 MG30 MG PO (15:10)
[2016-12-20] MEDS ORDERED: TOPROL XL 5050 MG PO (15:13)
[2016-12-20] MEDS ORDERED: DILAUDID2 MG/ML ET (15:15)
[2016-12-20] MEDS ORDERED: VICKS VAPOINHA1 EACH INH (15:18)
[2016-12-25] MEDS ORDERED: SEROQUEL100 MG PO (13:53)
--- NOTE | 2016-12-25 16:53 | NUR ---
Significant Event: mepilex dressing to l) shoulder and tegaderm dressing to l) elbow c/d/i. csm assessments wnl to l) upper extremity. rates l) shoulder pain, 5-4 on pain scale, xanaflex given at 1216 and dilaudid 2mg tab given at 1626. bruising to l) upper arm. bilateral calf pumps on. mepilex dressing to l) iliac crest, c/d/i. note small open area to coccyx, patient and stated, that she's had it and is seeing a doctor for it. ambulates to bathroom and up to chair with 1 assist, use of gait belt and jarod-walker. patient has pain pump to abdomen. Follow up:
--- NOTE | 2016-12-26 05:20 | NUR ---
Pt vitals stable during shift. Meplex dressing on shoulder/left arm and iliac crest (abdoment left). Tegaderm on left elbow. Redness on buttocks bilateral. Limited ROM on left arm/hand. Normal sensation on affected extremity. Slightly flex hand at elbow and slight abduction at shoulder. Weak peripheral pulses. One assist to bathroom and chair
[2016-12-26 05:33] LABS: BASOPHIL % 0.3 %; EOSINOPHIL % 0.1 %; IMMATURE GRANULOCYTE # 0.1 K/uL (0.0-0.3); IMMATURE GRANULOCYTE % 0.4 %; LYMPHOCYTE # 3.3 K/uL (0.8-4.0); LYMPHOCYTE % 22.5 %; MONOCYTE # 1.4 K/uL (0.0-1.0); MONOCYTE % 9.5 %; MPV 11.4 fl (9.4-12.4); NEUTROPHIL # (ANC) 9.7 K/uL (1.8-7.8); NEUTROPHIL % 67.2 %; NRBC % 0 /100WBC (0-0.00); WBC 14.5 K/uL (4.0-11.0)
[2016-12-26 05:36] LABS: HEMOGLOBIN 7.4 g/dL (10.0-15.0); MCH 30.2 pg (27.0-34.0); MCHC 30.8 gm/dL (32.0-36.5); PLATELET COUNT 202 K/uL (150-450); RBC 2.45 M/uL (3.50-5.50)
--- NOTE | 2016-12-26 06:02 | NUR ---
I have reviewed the charting of Student Nurse Natalie Bose and agree with her documenation of patient this shift.
--- NOTE | 2016-12-26 09:35 | NUR ---
Introduced self/role to patient and her Jeff. They are from [place]. He is staying in the [facility]. Their wish is for her to go to the [facility] when discharged from here. 1000 Checked on patients hospital status with UR nurse Ariane. Is inpatient. 1015 Followed up with patient and that inorder to go to [place] on a Medicare stay will have to stay until Friday. 1155 Spoke to Corinne at [facility]. 1300 Faxed referral. 1445 Corinne called and they can accept Friday. Needs to be to them by noon. Bobbi, home care companion, followed up with patient since she moved to [place]. She started the packet and put orders on the chart. Nursing aware and huddle board updated. Corinne called and left a message with a list of 8 medications patient will have to fill before coming and/or will need separate scripts for. Will address tomorrow.
--- NOTE | 2016-12-26 14:04 | NUR ---
Significant Event: Pt is a/o. Amb to BR with one assist and hemiwalker. Also has amb in gama with assist. Dressing to L) shoulder intact with old drainage under mepilex, reinforced with ABD and kurlex. Mepilex c/d/i to L) iliac crest. Healed sore to tim buttocks. Kristine last @ 1126. Takes several meds for anxiety. Ice bag as needed to L) shoulder and iliac crest. Uses IS with encouragement. Refuses pneumatic stockings. Follow up:
[2016-12-26 15:30] LABS: HEMATOCRIT 25.1 % (33.0-46.0)
[2016-12-26 15:31] LABS: HEMOGLOBIN 7.7 g/dL (10.0-15.0)
--- NOTE | 2016-12-26 18:40 | NUR ---
Significant Event: Assumed cares at 1500. Ambulates with SBA and hemiwalker. Alarms for safety. Ativan 0.5mg at 1708. Dressing to L) arm with old drainage. Dressing to L) hip C/D/I. Follow up:
--- NOTE | 2016-12-27 05:01 | NUR ---
Significant Event: The patient is Alert and Oriented x3. Denies numbness and tingling. Moves all extremities spontaneously and to command. Left arm moves with difficulty. VSS. On room air. PIV to the Right forearm saline locked. Edema noted to bilateral legs, and left arm. Complaints of pain to the Left arm gave 2mg of Dilaudid at 0322. Up with shiraz KEITH. Bruising to the Left hip and bilateral arms. Dressing to the left arm and left hip with shadow drainage noted. Follow up:
[2016-12-27 05:13] LABS: BASOPHIL % 0.4 %; EOSINOPHIL % 0.1 %; IMMATURE GRANULOCYTE # 0.1 K/uL (0.0-0.3); IMMATURE GRANULOCYTE % 0.6 %; LYMPHOCYTE % 38.4 %; MCV 95.7 fl (83.0-98.0); MONOCYTE # 1.2 K/uL (0.0-1.0); MPV 12.1 fl (9.4-12.4); NEUTROPHIL % 48.5 %; NRBC % 0 /100WBC (0-0.00); PLATELET COUNT 174 K/uL (150-450); RDW-CV 15.5 % (11.9-14.6); WBC 10.3 K/uL (4.0-11.0)
[2016-12-27 05:18] LABS: RBC 1.61 M/uL (3.50-5.50)
[2016-12-27 05:21] LABS: HEMATOCRIT 15.4 % (33.0-46.0); MCH 31.1 pg (27.0-34.0); MCHC 32.5 gm/dL (32.0-36.5)
[2016-12-27 06:07] LABS: BASOPHIL % 0.3 %; EOSINOPHIL % 0.3 %; IMMATURE GRANULOCYTE % 0.3 %; LYMPHOCYTE # 3.3 K/uL (0.8-4.0); LYMPHOCYTE % 33.9 %; MCV 98.3 fl (83.0-98.0); MONOCYTE # 1.2 K/uL (0.0-1.0); MONOCYTE % 11.9 %; MPV 11.4 fl (9.4-12.4); NEUTROPHIL # (ANC) 5.1 K/uL (1.8-7.8); NEUTROPHIL % 53.3 %; NRBC % 0 /100WBC (0-0.00); PLATELET COUNT 201 K/uL (150-450); RDW-CV 15.3 % (11.9-14.6); WBC 9.7 K/uL (4.0-11.0)
[2016-12-27 06:11] LABS: HEMOGLOBIN 7.2 g/dL (10.0-15.0); MCHC 30.5 gm/dL (32.0-36.5)
[2016-12-27 06:12] LABS: HEMATOCRIT 23.6 % (33.0-46.0)
--- NOTE | 2016-12-27 09:55 | NUR ---
0946 Spoke to patients about how there were about 7 items on his med list that [facility] can't [facility]. We will have to get scripts for them and he can run and fill them before they go there. He stated he will fill them at the [facility]. Left a note on the chart and highlighted the medications that will need scripts. Also informed charge nurse aMne and patients nurse Juli. [address] Ramesh about scripts. He stated those medications are not ones he usually prescribs so would be best for hospitalist to do. 1035 Spoke to Allison Segal about scripts. She will get it taken care of. Aware would like to get them filled today since they have to leave for [facility] at 1030 Friday. [id number] Note left on chart for RN to RN #[phone], # Dr. Antonia Blanchard #[phone] option 2, and fax # for meds/orders #[phone]. Called [facility] and confirmed everything.
--- NOTE | 2016-12-27 11:42 | NUR ---
PT SCREENED D/T MST. WT UP 3# FROM NOVEMBER ADMIT. EATING 50-100%. PLAN TO DC 12/28. NO NUTRITION RELATED DIAGNOSIS IDENTIFIED AT THIS TIME. WILL ASSIST NEEDED.
--- NOTE | 2016-12-27 16:12 | NUR ---
Pt alert and oriented. SHe has been up to the bathroom with one assist several times. She has been tired and says weak. Hgb this morn 7.2 One unit blood given and is finished. She has c/o back pain Lt upper arm and left iliac pain rated from 3 up to 7. Dilaudid 2 mg x2, last at 1020. Pain 3 at last check and has slept some this afternoon. Pt had anxiety about getting blood. Ativan and tylenol given at 1300 and is more relaxed. Pt uses IS at 1250. Ate some breakfast and only juice for lunch. Voids well. Started on meds for bowels. CSM WNL left arm. 1+ leg and feet edema. [facility] Spouse filled some of scripts that they don't have there. Pt hasn't worn sling today per her request. Uses hemiwalker and 1 assist when up. Saling lock Rt wrist.
[2016-12-27 17:06] LABS: HEMATOCRIT 27.3 % (33.0-46.0); HEMOGLOBIN 8.8 g/dL (10.0-15.0)
--- NOTE | 2016-12-28 04:37 | NUR ---
Significant Event: Patient is alert and oriented x 3. VSS on room air. HRs in the 60s-80s. SBPs in the 1 teens-130s. Afebrile. Up with 1 assist, gaitbelt, and hemiwalker. Dressing to left upper arm was reinforced this shift. It is clean, dry, and intact. Dressing to left hip is intact, small drainage. Left arm CSM is WNL. Denies any numbness or tingling. Can wear swing to left arm for comfort, hasn't worn all shif. Right forearm IV, saline locked. Dilaudid given last at 0311. Ativan given at 0051 for patient stating she felt anxious. Patient is pleasant and cooperative with cares. Follow up: To be discharged to [facility] at 1030 this am.
[2016-12-28 04:51] LABS: BASOPHIL % 0.2 %; EOSINOPHIL % 0.5 %; HEMATOCRIT 24.5 % (33.0-46.0); IMMATURE GRANULOCYTE % 0.2 %; LYMPHOCYTE # 2.9 K/uL (0.8-4.0); LYMPHOCYTE % 33.1 %; MONOCYTE % 11.4 %; MPV 11.7 fl (9.4-12.4); NEUTROPHIL # (ANC) 4.7 K/uL (1.8-7.8); NEUTROPHIL % 54.6 %; NRBC % 0 /100WBC (0-0.00); PLATELET COUNT 165 K/uL (150-450); RBC 2.64 M/uL (3.50-5.50); WBC 8.7 K/uL (4.0-11.0)
[2016-12-28 04:54] LABS: HEMOGLOBIN 7.9 g/dL (10.0-15.0); MCH 29.9 pg (27.0-34.0); MCHC 32.2 gm/dL (32.0-36.5); MCV 92.8 fl (83.0-98.0); RDW-CV 17.9 % (11.9-14.6)
--- NOTE | 2016-12-28 10:00 | NUR ---
A/O X3, @ bedside, CSM intact to all extremities, mepilex/ABD/kerlix drsg D/I to LUE, mepilex drsg D/I to L)anterior hip, denies numbness or tingling, poor appetite, ativan & Dilaudid given last at 0830. edema to BLE, voids per toilet, colace/miralax given, 1 assist/gait belt/hemiwalker for transfers, buttocks reddened upon admission. sling PRN to LUE,
== END 2016-12-28 10:50 | disposition swing bed (61) | DRG 493 ==
LOC: GPOC 14:00 → G3N 12-25 06:01 → EDSTATUS 12-25 14:00 → GPOC 12-25 14:00 → GNTU 12-26 14:53
PROVIDERS: Internal Medicine; Physician Assistant; ADMIT Orthopaedic Surgery
DX: S42.302G Unspecified fracture of shaft of humerus, left arm, subsequent encounter for fracture with delayed healing (principal); F11.20 Opioid dependence, uncomplicated; D62 Acute posthemorrhagic anemia; F41.9 Anxiety disorder, unspecified; G89.4 Chronic pain syndrome; Z79.891 Long term (current) use of opiate analgesic; W18.30XD Fall on same level, unspecified, subsequent encounter
CPT/HCPCS: C1713; J0171; J0735; J1100; J1885; J2250; J2405; J2795; J7030; J7040; J7050; J7120; J7512; P9016